=== PATIENT | female | born 1930 | race Caucasian/White ===

== ENCOUNTER → 2016-06-15 | Outpatient (CLI) | payer MEDICARE, BC ==
[~2016-06-15] MED LIST: AMLODIPINE5 MG PO; BUFFERED ASPIR325 M1 PO; BUSPAR5 MG PO; GLUCOPHAGE500 MG/TAB PO; JANUVIA 100MG100 MG PO; LISINOPRIL/HCTZ1 TA2 PO; LOMOTIL 0.025 M1 TAB PO; LOSARTAN POTAS100 MG PO; METFORMIN500 MG PO; PEPCID AC 10MG10 MG PO; PHAZYME ULTRA180 MG PO; POTASSIUM GLUCONATE PO; PRELIEF333 M1 PO; PREMARIN V0.625 MG/G VG; PRILOSEC 20MG20 MG PO; PROBIOTIC-MAJOR PO; REMERON15 MG PO; SIMVASTATIN10 MG PO; TENORMIN50 MG PO; TIROSINT50 MC1 PO; TRICOR145 MG PO; TYLENOL PM 5001 CAP PO; VITAMIN D3400 IU PO; XANAX0.25 MG PO; [UNRECOGNIZED DRUG - OTHER] PO; fiorinal
== END ==
LOC: SUN.DIA 10:15
DX: E11.65 Type 2 diabetes mellitus with hyperglycemia (principal); Z68.25 Body mass index [BMI] 25.0-25.9, adult; Z71.3 Dietary counseling and surveillance; E78.5 Hyperlipidemia, unspecified; I10 Essential (primary) hypertension; E03.9 Hypothyroidism, unspecified

== ENCOUNTER → 2016-07-21 | Outpatient (CLI) | payer MEDICARE, BC | LOC: BHSO 09:54 | DX: F41.1 Generalized anxiety disorder (principal) ==

== ENCOUNTER → 2016-12-16 | Outpatient (CLI) | payer MEDICARE, BC | LOC: SUN.DIA 09:08 | DX: E11.9 Type 2 diabetes mellitus without complications (principal); E78.5 Hyperlipidemia, unspecified; I10 Essential (primary) hypertension; E03.9 Hypothyroidism, unspecified; Z68.26 Body mass index [BMI] 26.0-26.9, adult; Z71.3 Dietary counseling and surveillance | CPT/HCPCS: G0108 ==

== ENCOUNTER → 2017-01-20 | Outpatient (CLI) | payer MEDICARE, BC | LOC: BHSO 09:50 | DX: F41.1 Generalized anxiety disorder (principal) ==

== ENCOUNTER 2017-05-03 10:15 | Outpatient (RCR) | payer MEDICARE, BC | END 2017-05-05 08:41 | disposition home or self-care (01) | LOC: WSPT 10:15 | DX: M16.11 Unilateral primary osteoarthritis, right hip (principal) | CPT/HCPCS: G8978-GP; G8979-GP; G8980-GP ==

== ENCOUNTER → 2017-06-16 | Outpatient (CLI) | payer MEDICARE, BC | LOC: SUN.DIA 10:02 | DX: E11.9 Type 2 diabetes mellitus without complications (principal); E78.5 Hyperlipidemia, unspecified; I10 Essential (primary) hypertension; E03.9 Hypothyroidism, unspecified; Z68.26 Body mass index [BMI] 26.0-26.9, adult; Z71.3 Dietary counseling and surveillance | CPT/HCPCS: G0108 ==

== ENCOUNTER → 2017-07-14 | Outpatient (CLI) | payer MEDICARE, BC | LOC: BHSO 09:54 | DX: F41.1 Generalized anxiety disorder (principal) | CPT/HCPCS: G0463 ==

== ENCOUNTER → 2017-07-26 | Outpatient (CLI) | payer MEDICARE, BC | LOC: MC.RAD 11:16 | DX: Z12.31 Encounter for screening mammogram for malignant neoplasm of breast (principal) ==

== ENCOUNTER → 2017-12-19 | Outpatient (CLI) | payer MEDICARE, BC | LOC: SUN.DIA 10:49 | DX: E11.9 Type 2 diabetes mellitus without complications (principal); E78.5 Hyperlipidemia, unspecified; I10 Essential (primary) hypertension; E03.9 Hypothyroidism, unspecified | CPT/HCPCS: G0108 ==

== ENCOUNTER → 2018-01-04 | Outpatient (CLI) | payer MEDICARE, BC | LOC: BHSO 10:03 | DX: F41.1 Generalized anxiety disorder (principal) | CPT/HCPCS: G0463 ==

== ENCOUNTER 2018-05-30 10:00 | Outpatient (RCR) | payer MEDICARE, BC | END 2018-05-31 08:35 | disposition home or self-care (01) | LOC: WSPT 10:00 | DX: M16.11 Unilateral primary osteoarthritis, right hip (principal) ==

== ENCOUNTER → 2018-07-04 | Outpatient (CLI) | payer MEDICARE, BC | LOC: BHSO 10:14 | DX: F41.1 Generalized anxiety disorder (principal) | CPT/HCPCS: G0463 ==

== ENCOUNTER → 2018-07-25 | Outpatient (CLI) | payer MEDICARE, BC | LOC: SUN.DIA 09:17 | DX: E11.9 Type 2 diabetes mellitus without complications (principal); E78.5 Hyperlipidemia, unspecified; I10 Essential (primary) hypertension; E03.9 Hypothyroidism, unspecified | CPT/HCPCS: G0108 ==

== ENCOUNTER 2018-09-24 14:43 | Emergency (ER) | payer MEDICARE, BC ==
[~2018-09-24] VITALS: Ht 165.1 cm; Wt 71.8 kg
[~2018-09-24 14:43] MED LIST changes: +TENORMIN100 MG; -TENORMIN50 MG PO
[2018-09-24 14:58] VITALS: TEMP 98
[2018-09-24] MEDS ORDERED: ALDACTONE 25MG25 M1 (15:25)
[2018-09-24] MEDS ORDERED: NULEV0.125 M1 (15:26)
[2018-09-24 15:33] LABS: COLLECTION METHOD CLEAN CATCH
[2018-09-24 15:37] LABS: BASO # 0.1 (0.0-0.2); BASO % 0.6 % (0.0-2.0); EOS % 0.2 % (0-4.0); GRAN # 5.2 (1.4-6.5); GRAN % 63.1 % (42.2-75.2); LYMPH # 1.9 (1.2-3.4); LYMPH % 22.6 % (20.0-51.0); MEAN CELL VOLUME 76 fl (80.0-100.0); MEAN CORPUSCULAR HEMOGLOBIN 24 pg (27.0-31.0); MEAN CORPUSCULAR HGB CONC 32 g/dl (33.0-37.0); MEAN PLATELET VOLUME 9.5 fl (7.4-10.4); MONO # 1.1 (0.1-0.6); PLATELET COUNT 245 K/mm3 (130-400); RED BLOOD COUNT 6.19 M/mm3 (4.10-5.30); REDCELL DISTRIBUTION WIDTH-CV 16.5 % (11.5-14.5)
[2018-09-24 15:40] LABS: PH 6 (5-8); SQUAMOUS EPITHELIAL 0-2 /hpf; URINE APPEARANCE Clear; URINE BACTERIA Rare /hpf; URINE BILIRUBIN Negative (NEGATIVE); URINE BLOOD Negative (NEGATIVE); URINE COLOR Yellow; URINE GLUCOSE Negative (NEGATIVE); URINE KETONE Negative (NEGATIVE); URINE LEUKOCYTE ESTERASE Trace (NEGATIVE); URINE NITRATE Negative (NEGATIVE); URINE PROTEIN(semi-quant) Negative (NEGATIVE); URINE RBC 0-2 /hpf; URINE UROBILINOGEN Negative (NEGATIVE)
[2018-09-24 15:42] LABS: ALANINE AMINOTRANSFERASE 19 U/L (9-52); ALBUMIN 4.1 gm/dL (3.5-5.0); ALKALINE PHOSPHATASE 53 U/L (50-136); ANION GAP 14 mmol/L (7-16); AST,SGOT 40 U/L (15-37); BILIRUBIN,TOTAL 0.6 mg/dL (0.0-1.0); BLOOD UREA NITROGEN 13 mg/dL (7-17); CALCIUM 10.3 mg/dL (8.4-10.2); CARBON DIOXIDE 24 mmol/L (22-30); CHLORIDE 99 mmol/L (98-107); CREATINE KINASE 30 U/L (30-135); CREATININE, serum 0.61 (0.52-1.25); GLUCOSE 109 mg/dL (74-106); POTASSIUM 3.7 mmol/L (3.4-5.0); SODIUM 136 mmol/L (137-145); TOTAL PROTEIN 7.8 gm/dL (6.4-8.2)
[2018-09-24 15:55] LABS: TROPONIN-I < 0.012 ng/mL (0.000-0.035)
[2018-09-24 18:14] VITALS: BP 156/83; PULSE 79
== END 2018-09-24 18:19 | disposition home or self-care (01) ==
LOC: COL.ER 14:43
PROVIDERS: Emergency Medicine
DX: I10 Essential (primary) hypertension (principal); R10.30 Lower abdominal pain, unspecified; Z90.49 Acquired absence of other specified parts of digestive tract; Z90.710 Acquired absence of both cervix and uterus
CPT/HCPCS: J0360; J2060; J2270; J2405

== ENCOUNTER 2018-10-02 07:54 | Emergency (ER) | payer MEDICARE, BC ==
[~2018-10-02] VITALS: Ht 165.1 cm; Wt 70.9 kg
[~2018-10-02 07:54] MED LIST changes: +ALDACTONE 25MG25 M1; +NULEV0.125 M1
[2018-10-02] MEDS ORDERED: ALDACTONE50 MG (08:21)
[2018-10-02] MEDS ORDERED: JANUVIA 100MG100 MG (08:23)
[2018-10-02] MEDS ORDERED: PREMARIN VAG42.5 GM (08:33)
[2018-10-02] MEDS ORDERED: BUSPAR DIVIDOSE15 MG PO (08:33)
[2018-10-02] MEDS ORDERED: ULTRAM 50MG TAB50 MG (08:34)
[2018-10-02] MEDS ORDERED: REMERON 15M15 MG/TA1 PO (08:35)
[2018-10-02] MEDS ORDERED: VITAMIN D31000 I1 PO (08:36)
[2018-10-02] MEDS ORDERED: TYLENOL 325MG325 MG PO (08:36)
[2018-10-02] MEDS ORDERED: DUO-KAPS1 CAP (08:37)
[2018-10-02 08:57] LABS: BASO # 0.1 (0.0-0.2); BASO % 0.8 % (0.0-2.0); EOS % 0.5 % (0-4.0); GRAN % 64.2 % (42.2-75.2); HEMATOCRIT 44.4 % (37.0-47.0); HEMOGLOBIN 14.3 g/dl (12.5-16.0); LYMPH # 1.4 (1.2-3.4); MEAN CELL VOLUME 77 fl (80.0-100.0); MEAN CORPUSCULAR HEMOGLOBIN 25 pg (27.0-31.0); MEAN CORPUSCULAR HGB CONC 32 g/dl (33.0-37.0); MEAN PLATELET VOLUME 9.3 fl (7.4-10.4); MONO # 0.8 (0.1-0.6); PLATELET COUNT 223 K/mm3 (130-400); RED BLOOD COUNT 5.76 M/mm3 (4.10-5.30); REDCELL DISTRIBUTION WIDTH-CV 17.4 % (11.5-14.5)
[2018-10-02 09:10] LABS: ALANINE AMINOTRANSFERASE < 6 U/L (9-52); ALBUMIN 3.9 gm/dL (3.5-5.0); ALKALINE PHOSPHATASE 44 U/L (50-136); ANION GAP 11 mmol/L (7-16); AST,SGOT 30 U/L (15-37); BILIRUBIN,TOTAL 0.4 mg/dL (0.0-1.0); BLOOD UREA NITROGEN 21 mg/dL (7-17); CARBON DIOXIDE 23 mmol/L (22-30); CHLORIDE 100 mmol/L (98-107); CREATININE, serum 0.73 (0.52-1.25); GLUCOSE 189 mg/dL (74-106); POTASSIUM 3.6 mmol/L (3.4-5.0); SODIUM 134 mmol/L (137-145); TOTAL PROTEIN 7.3 gm/dL (6.4-8.2)
[2018-10-02 09:11] LABS: C-REACTIVE PROTEIN < 0.5 mg/dL (0.0-0.9)
[2018-10-02 09:20] LABS: TROPONIN-I < 0.012 ng/mL (0.000-0.035)
[2018-10-02 11:01] LABS: COLLECTION METHOD CLEAN CATCH
[2018-10-02 11:09] LABS: PH 6 (5-8); SQUAMOUS EPITHELIAL 0-2 /hpf; URINE APPEARANCE Clear; URINE BACTERIA Rare /hpf; URINE BILIRUBIN Negative (NEGATIVE); URINE BLOOD Negative (NEGATIVE); URINE COLOR Straw; URINE GLUCOSE Negative (NEGATIVE); URINE KETONE Negative (NEGATIVE); URINE LEUKOCYTE ESTERASE Trace (NEGATIVE); URINE NITRATE Positive (NEGATIVE); URINE PROTEIN(semi-quant) Negative (NEGATIVE); URINE RBC 0-2 /hpf; URINE UROBILINOGEN Negative (NEGATIVE)
[2018-10-02] MEDS ORDERED: NORCO 325 MG-51 TAB PO (11:11)
[2018-10-02] MEDS ORDERED: ZOFRAN ODT4 MG PO (11:11)
[2018-10-02] MEDS ORDERED: CEPHALEXIN500 M1 PO (11:18)
[2018-10-02] MEDS ORDERED: LIDODERM 5% PATC1 EA TP (12:05)
[2018-10-02 12:50] VITALS: BP 151/86; PULSE 64; TEMP 98.1
== END 2018-10-02 12:50 | disposition home or self-care (01) ==
LOC: COL.ER 07:54
PROVIDERS: Physician Assistant
DX: N30.90 Cystitis, unspecified without hematuria (principal); I10 Essential (primary) hypertension; M19.90 Unspecified osteoarthritis, unspecified site; M85.80 Other specified disorders of bone density and structure, unspecified site; Z90.710 Acquired absence of both cervix and uterus; Z90.49 Acquired absence of other specified parts of digestive tract
CPT/HCPCS: A4216; J0360; J0696; J1885; J2060; J2270; J2405; J3010; J7030

== ENCOUNTER 2018-10-05 03:24 | Emergency (ER) | payer MEDICARE, BC ==
[~2018-10-05] VITALS: Ht 165.1 cm; Wt 70.5 kg
[~2018-10-05 03:24] MED LIST changes: +ALDACTONE50 MG; +BUSPAR DIVIDOSE15 MG PO; +CEPHALEXIN500 M1 PO; +DUO-KAPS1 CAP; +JANUVIA 100MG100 MG; +LIDODERM 5% PATC1 EA TP; +NORCO 325 MG-51 TAB PO; +PREMARIN VAG42.5 GM; +REMERON 15M15 MG/TA1 PO; +TYLENOL 325MG325 MG PO; +ULTRAM 50MG TAB50 MG; +VITAMIN D31000 I1 PO; +ZOFRAN ODT4 MG PO
[2018-10-05 03:50] LABS: BASO # 0.1 (0.0-0.2); BASO % 0.7 % (0.0-2.0); EOS # 0.1 (0.0-0.7); EOS % 0.8 % (0-4.0); GRAN # 4.7 (1.4-6.5); GRAN % 61.8 % (42.2-75.2); HEMATOCRIT 47.1 % (37.0-47.0); LYMPH # 1.8 (1.2-3.4); LYMPH % 23.3 % (20.0-51.0); MEAN CELL VOLUME 78 fl (80.0-100.0); MEAN CORPUSCULAR HEMOGLOBIN 25 pg (27.0-31.0); MEAN CORPUSCULAR HGB CONC 32 g/dl (33.0-37.0); MEAN PLATELET VOLUME 9.6 fl (7.4-10.4); MONO % 13.1 % (1.7-9.3); PLATELET COUNT 249 K/mm3 (130-400); RED BLOOD COUNT 6.02 M/mm3 (4.10-5.30); REDCELL DISTRIBUTION WIDTH-CV 18.3 % (11.5-14.5)
[2018-10-05 03:59] LABS: ALANINE AMINOTRANSFERASE 15 U/L (9-52); ALBUMIN 4.1 gm/dL (3.5-5.0); ALKALINE PHOSPHATASE 50 U/L (50-136); ANION GAP 11 mmol/L (7-16); AST,SGOT 34 U/L (15-37); BILIRUBIN,TOTAL 0.6 mg/dL (0.0-1.0); BLOOD UREA NITROGEN 25 mg/dL (7-17); CALCIUM 10.1 mg/dL (8.4-10.2); CARBON DIOXIDE 25 mmol/L (22-30); CHLORIDE 101 mmol/L (98-107); CREATININE, serum 0.75 (0.52-1.25); GLUCOSE 129 mg/dL (74-106); SODIUM 138 mmol/L (137-145); TOTAL PROTEIN 7.7 gm/dL (6.4-8.2)
[2018-10-05 04:10] LABS: TROPONIN-I < 0.012 ng/mL (0.000-0.035)
[2018-10-05 04:23] LABS: PH 6 (5-8); SQUAMOUS EPITHELIAL None Seen /hpf; URINE APPEARANCE Clear; URINE BACTERIA None Seen /hpf; URINE BILIRUBIN Negative (NEGATIVE); URINE BLOOD Negative (NEGATIVE); URINE COLOR Yellow; URINE GLUCOSE Negative (NEGATIVE); URINE KETONE Negative (NEGATIVE); URINE LEUKOCYTE ESTERASE Trace (NEGATIVE); URINE NITRATE Negative (NEGATIVE); URINE PROTEIN(semi-quant) Negative (NEGATIVE); URINE UROBILINOGEN Negative (NEGATIVE); URINE WBC 20-50 /hpf
[2018-10-05 04:25] LABS: COLLECTION METHOD CATHETER
[2018-10-05 06:25] VITALS: BP 175/98; PULSE 63; TEMP 97.6
== END 2018-10-05 06:25 | disposition home or self-care (01) ==
LOC: COL.ER 03:24
PROVIDERS: Emergency Medicine
DX: I10 Essential (primary) hypertension (principal); G89.29 Other chronic pain; M25.551 Pain in right hip; F32.9 Major depressive disorder, single episode, unspecified; F41.9 Anxiety disorder, unspecified; K58.9 Irritable bowel syndrome, unspecified; E78.5 Hyperlipidemia, unspecified

== ENCOUNTER → 2019-01-02 | Outpatient (CLI) | payer MEDICARE, BC | LOC: BHSO 10:11 | DX: F41.1 Generalized anxiety disorder (principal) | CPT/HCPCS: G0463 ==

== ENCOUNTER → 2019-04-17 | Outpatient (CLI) | payer MEDICARE, BC | LOC: COL.RAD 12:06 | DX: N28.1 Cyst of kidney, acquired (principal); Z87.440 Personal history of urinary (tract) infections ==

== ENCOUNTER → 2019-08-29 | Outpatient (CLI) | payer MEDICARE, BC ==
[~2019-08-29] MED LIST changes: +CATAPRES 0.1MG0.1 MG PO; +FIBER0.52 GM PO; +NORVASC 5MG5 MG/TAB PO; +TOPROL XL100 MG PO
== END ==
LOC: DIA.ED 10:50
DX: E11.9 Type 2 diabetes mellitus without complications (principal); E78.5 Hyperlipidemia, unspecified; I10 Essential (primary) hypertension; E03.9 Hypothyroidism, unspecified
CPT/HCPCS: G0270

== ENCOUNTER → 2020-03-05 | Outpatient (CLI) | payer MEDICARE, BC | LOC: DIA.ED 10:45 | DX: E11.9 Type 2 diabetes mellitus without complications (principal); I10 Essential (primary) hypertension; E78.5 Hyperlipidemia, unspecified | CPT/HCPCS: G0270 ==

== ENCOUNTER → 2020-06-05 | Outpatient (CLI) | payer MEDICARE, BC | LOC: MC.RAD 05-27 10:30 | DX: Z12.31 Encounter for screening mammogram for malignant neoplasm of breast (principal) ==

== ENCOUNTER → 2020-09-18 | Outpatient (CLI) | payer MEDICARE, BC | LOC: DIA.ED 09:15 | DX: E11.65 Type 2 diabetes mellitus with hyperglycemia (principal); Z79.84 Long term (current) use of oral hypoglycemic drugs; E78.5 Hyperlipidemia, unspecified; I10 Essential (primary) hypertension | CPT/HCPCS: G0270 ==